=== PATIENT | male | born 1985 | race American Indian/Alaskan Native ===

== ENCOUNTER 2016-03-30 01:48 | Emergency (ER) | payer OTHER ==
[2016-03-30 02:32] VITALS: BP 100/66
[2016-03-30] MEDS ORDERED: NACL 0.9% 1000 ML 1,000 ML IV ONE (03:15)
[2016-03-30 04:07] LABS: Alanine Aminotransferase 37 units/L (7-56); Albumin/Globulin Ratio 1.4 %; Alkaline Phosphatase 37 units/L (35-129); Anion Gap 16 mmol/L; BUN/Creatinine Ratio 17.77; Bilirubin,Total 0.9 mg/dL (0.1-1.2); Blood Urea Nitrogen 16 mg/dL (9-20); Calcium 8.2 mg/dL (8.4-10.2); Carbon Dioxide 29 mmol/L (22-30); Chloride 92.1 mmol/L (98-107); Glucose 98 mg/dL (75-100); Lipase 141 units/L (13-60); Potassium 3.6 mmol/L (3.6-5.0); Sodium 133 mmol/L (137-145); Total Protein 6.9 g/dL (6.3-8.2)
[2016-03-30 04:17] LABS: Basophils % (Auto) 0.3 % (0.0-1.8); Hematocrit 46.4 % (35.5-45.6); Hemoglobin 15.2 gm/dl (11.8-15.2); Mean Corpuscular HGB Conc 33 % (32-34); Mean Corpuscular Hemoglobin 28 pg (28-32); Mean Corpuscular Volume 85 fl (84-94); Red Blood Count 5.46 M/mm3 (3.65-5.03); Red Cell Distribution Width 13.6 % (13.2-15.2); White Blood Count 2.7 K/mm3 (4.5-11.0)
[2016-03-30 04:27] LABS: INR 0.97 (0.87-1.13)
[2016-03-30 04:28] LABS: Partial Thromboplastin Time 34.9 Sec. (24.2-36.6)
[2016-03-30 05:02] LABS: Platelet Count 97 K/mm3 (140-440)
--- NOTE | 2016-03-30 10:17 | Emergency Department Report ---
ED General Adult HPI - General Chief complaint: GI Bleed Stated complaint: BLEEDING ANAL WARTS Time Seen by Provider: 03/30/16 09:53 Source: patient Mode of arrival: Ambulatory Limitations: No Limitations - History of Present Illness Initial comments: Pt reports flu like sx with cough, on and off fevers, and sore throat for the past 4-5 days. Denies SOB. Also reports anal itching with intermittent blood when wiping. Denies abdominal pain, n/v/d. -: Gradual, days(s) (5) Location: buttocks Radiation: non-radiation Severity scale (0 -10): 7 Quality: other (itching) Improves with: none Worsens with: none Associated Symptoms: fever/chills Treatments Prior to Arrival: none - Related Data Previous Rx's Medication Instructions Recorded Last Taken Type Azithromycin [Zithromax] 250 mg PO DAILY #6 tablet 03/30/16 Unknown Rx Hydrocortisone [Anucort-HC SUPPOS] 25 mg RC BID #12 supp.rect 03/30/16 Unknown Rx Lidocaine Viscous 2% 15 ml MM Q4-6H #200 ml 03/30/16 Unknown Rx Allergies Allergy/AdvReac Type Severity Reaction Status Date / Time Penicillins Allergy Unknown Verified 03/30/16 02:30 ED Review of Systems ROS: Stated complaint: BLEEDING ANAL WARTS Other details as noted in HPI Comment: All other systems reviewed and negative Constitutional: see HPI, chills, fever Eyes: denies: eye pain, eye discharge, vision change ENT: throat pain. denies: ear pain Respiratory: cough. denies: shortness of breath, wheezing Cardiovascular: denies: chest pain, palpitations Endocrine: no symptoms reported Gastrointestinal: hematochezia. denies: abdominal pain, nausea, diarrhea Genitourinary: denies: urgency, dysuria Musculoskeletal: denies: back pain, joint swelling, arthralgia Skin: denies: rash, lesions Neurological: denies: headache, weakness, paresthesias Psychiatric: denies: anxiety, depression Hematological/Lymphatic: denies: easy bleeding, easy bruising ED Past Medical Hx - Past Medical History Previous Medical History?: No - Surgical History Past Surgical History?: No - Social History Smoking Status: Never Smoker Substance Use Type: Marijuana - Medications Home Medications: Home Medications Medication Instructions Recorded Confirmed Last Taken Type Azithromycin [Zithromax] 250 mg PO DAILY #6 tablet 03/30/16 Unknown Rx Hydrocortisone [Anucort-HC SUPPOS] 25 mg RC BID #12 supp.rect 03/30/16 Unknown Rx Lidocaine Viscous 2% 15 ml MM Q4-6H #200 ml 03/30/16 Unknown Rx ED Physical Exam - General Limitations: No Limitations General appearance: alert, in no apparent distress - Head Head exam: Present: atraumatic, normocephalic - Eye Eye exam: Present: normal appearance - ENT ENT exam: Present: mucous membranes moist, other (multiple ulcerations noted to oropharynx. no thrush. ) - Neck Neck exam: Present: normal inspection - Respiratory Respiratory exam: Present: normal lung sounds bilaterally. Absent: respiratory distress - Cardiovascular Cardiovascular Exam: Present: regular rate, normal rhythm. Absent: systolic murmur, diastolic murmur, rubs, gallop - GI/Abdominal GI/Abdominal exam: Present: soft, normal bowel sounds. Absent: distended, tenderness, guarding, rebound - Rectal Rectal exam: Present: hemorrhoids (no active bleeding. non-thrombosed.) - Extremities Exam Extremities exam: Present: normal inspection - Back Exam Back exam: Present: normal inspection - Neurological Exam Neurological exam: Present: alert, oriented X3 - Psychiatric Psychiatric exam: Present: normal affect, normal mood - Skin Skin exam: Present: warm, dry, intact, normal color. Absent: rash ED Course Vital Signs 03/30/16 02:30 Temperature 98.9 F Pulse Rate 84 Respiratory 20 Rate Blood Pressure 100/66 [Left] O2 Sat by Pulse 98 Oximetry - Reevaluation(s) Reevaluation #1: 03/30/16 10:19 NAD, stable for d/c. ED Medical Decision Making - Lab Data Result diagrams: 03/30/16 03:22 03/30/16 03:22 - Medical Decision Making Pt well appearing, with flu like symptoms and findings of mild leukopenia and thrombocytopenia on labs. Moderate concern for HIV- I have discussed following up with health department for testing TAWANNA. Specific return precautions were discussed. Rectal exam shows hemorrhoid- will treat. Will also place on abx for URI and give lidocaine for oral ulcers. Case discussed w/ Dr. Minor who is in agreement. - Differential Diagnosis viral syndrome, hemorrhoid, HIV Critical care attestation.: If time is entered above; I have spent that time in minutes in the direct care of this critically ill patient, excluding procedure time. ED Disposition Clinical Impression: Oral aphthous ulcer Upper respiratory infection Qualifiers: URI type: unspecified URI Qualified Code(s): J06.9 - Acute upper respiratory infection, unspecified Hemorrhoid Qualifiers: Hemorrhoid type: unspecified Qualified Code(s): K64.9 - Unspecified hemorrhoids Disposition: DISCHARGED TO HOME OR SELFCARE Is pt being admited?: No Condition: Stable Instructions: Upper Respiratory Infection (ED), Canker Sores (ED), Hemorrhoids (ED) Additional Instructions: Please follow up with the health department/PCP as discussed. Prescriptions: Azithromycin [Zithromax] 250 mg PO DAILY #6 tablet Hydrocortisone [Anucort-HC SUPPOS] 25 mg RC BID #12 supp.rect Lidocaine Viscous 2% 15 ml MM Q4-6H #200 ml Referrals: PRIMARY CAREMD [Primary Care Provider] - 3-5 Days ABIEL JOYNER MD [Staff Physician] - 3-5 Days Forms: Accompanied Note Time of Disposition: 10:24
== END 2016-03-30 10:44 | disposition home or self-care (01) ==
LOC: ED 01:48
DX: J06.9 Acute upper respiratory infection, unspecified (principal); K64.9 Unspecified hemorrhoids; K12.0 Recurrent oral aphthae; F12.90 Cannabis use, unspecified, uncomplicated; Z88.0 Allergy status to penicillin
CPT/HCPCS: 36415; 80053; 83690; 85025; 85610; 85730; 86850; 86900; 86901

== ENCOUNTER 2017-10-17 19:14 | Inpatient (IN) | payer OTHER ==
[2017-10-17 22:06] LABS: Hematocrit 30.6 % (35.5-45.6); Mean Corpuscular HGB Conc 33 % (32-34); Mean Corpuscular Hemoglobin 28 pg (28-32); Mean Corpuscular Volume 84 fl (84-94); Platelet Count 171 K/mm3 (140-440); Red Blood Count 3.64 M/mm3 (3.65-5.03); Red Cell Distribution Width 13.9 % (13.2-15.2)
[2017-10-17 22:22] LABS: Alanine Aminotransferase 18 units/L (7-56); Albumin 3.9 g/dL (3.9-5); BUN/Creatinine Ratio 16; Blood Urea Nitrogen 14 mg/dL (9-20); Calcium 8.9 mg/dL (8.4-10.2); Hemolysis Index 3
[2017-10-17 23:08] LABS: Band Neutrophils # (Manual) 0.1 K/mm3; Basophils % (Manual) 0 % (0.0-1.8); Total Cells Counted 100
[2017-10-17 23:09] LABS: Hypochromasia 2+
[2017-10-17 23:10] LABS: Platelet Estimate Consistent w Auto; Poikilocytosis 1+
[2017-10-18 00:05] LABS: Bilirubin,Urine NEG (Negative); Blood,Urine NEG (Negative); Color,Urine Amber (Yellow); Mucus,Urine 1+ /HPF
[2017-10-18] MEDS ORDERED: NACL 0.9% 1000 ML 1,000 ML IV ONE (00:52)
[2017-10-18] MEDS ORDERED: TYLENOL PO ONE (00:53)
[2017-10-18] MEDS ORDERED: ZOFRAN IV ONE (00:57)
--- NOTE | 2017-10-18 00:57 | Emergency Department Report ---
ED General Adult HPI - General Chief complaint: Abdominal Pain Stated complaint: N/V/D Time Seen by Provider: 10/18/17 00:32 Source: patient Mode of arrival: Ambulatory Limitations: No Limitations - History of Present Illness Initial comments: Patient is 32 years old male with history of HIV diagnosed 1 year ago. Patient stated that he did not have any follow-up since the diagnosis. Patient was never been on any anti-HIV medication. Patient presented to the ER complaining of a fever over the last 3 days associated with nausea vomiting and diarrhea. Patient denied any abdominal pain or chest pain. Patient stated that his being coughing and having shortness of breath. - Related Data Home Medications Medication Instructions Recorded Confirmed Last Taken No Known Home Medications [No 10/18/17 10/18/17 Unknown Reported Home Medications] Allergies Allergy/AdvReac Type Severity Reaction Status Date / Time Penicillins Allergy Unknown Verified 03/30/16 02:30 ED Review of Systems ROS: Stated complaint: N/V/D Other details as noted in HPI Comment: All other systems reviewed and negative Constitutional: chills, fever Respiratory: cough, shortness of breath. denies: orthopnea, SOB with exertion, SOB at rest, stridor, wheezing Cardiovascular: denies: chest pain, palpitations Gastrointestinal: nausea, vomiting, diarrhea. denies: abdominal pain, constipation, hematemesis, melena, hematochezia Genitourinary: denies: urgency, dysuria Musculoskeletal: denies: back pain ED Past Medical Hx - Past Medical History Previous Medical History?: Yes Additional medical history: lupus, HIV - Surgical History Past Surgical History?: No - Social History Smoking Status: Current Every Day Smoker Substance Use Type: None - Medications Home Medications: Home Medications Medication Instructions Recorded Confirmed Last Taken Type No Known Home Medications [No 10/18/17 10/18/17 Unknown History Reported Home Medications] ED Physical Exam - General Limitations: No Limitations ED Course Vital Signs 10/17/17 10/17/17 10/18/17 19:43 21:34 00:28 Temperature 101.6 F H 101.6 F H 99.1 F Pulse Rate 95 H 104 H Respiratory 18 17 Rate Blood Pressure 101/52 101/59 Blood Pressure [Right] O2 Sat by Pulse 99 99 Oximetry 10/18/17 10/18/17 10/18/17 03:00 04:00 04:40 Temperature 98.8 F Pulse Rate 80 Respiratory 17 Rate Blood Pressure 93/51 90/48 90/48 Blood Pressure 93/51 [Right] O2 Sat by Pulse 100 100 100 Oximetry 10/18/17 10/18/17 10/18/17 04:50 05:00 05:10 Temperature Pulse Rate Respiratory Rate Blood Pressure 90/48 90/54 90/54 Blood Pressure [Right] O2 Sat by Pulse 100 100 100 Oximetry 10/18/17 10/18/17 05:20 05:30 Temperature Pulse Rate Respiratory Rate Blood Pressure 90/54 90/54 Blood Pressure [Right] O2 Sat by Pulse 99 100 Oximetry ED Medical Decision Making - Lab Data Result diagrams: 10/18/17 04:01 10/18/17 04:01 - Radiology Data Radiology results: report reviewed Referring Physician: DANIELLE GERMAIN Patient Name: FORTUNATO GARRETT Date of : 1985 Sex: Male Report Date: 2017-10-18 Report Status: [place] [id number] XRay Report Signed Patient: FORTUNATO GARRETT MR#: [id number] : 1985 Acct:[id number] Age/Sex: 32 / M ADM Date: 10/17/17 Loc: ED Attending Dr: Ordering Physician: DANIELLE GERMAIN Date of Service: 10/18/17 Procedure(s): XR chest 1V ap Accession Number(s): [id number] cc: DANIELLE GERMAIN Fluoro Time In Minutes: FINAL REPORT EXAM: XR CHEST 1V AP HISTORY: cough COMPARISON: None available. FINDINGS: Frontal view(s) of the chest obtained. Cardiac silhouette within normal limits. No gross consolidation or effusion. No pneumothorax. IMPRESSION: No grossly acute findings. Transcribed By: LMA Dictated By: MICHELL BARBER MD Electronically Authenticated By: MICHELL BARBER MD Signed Date/Time: 10/18/17125 DD/ 5 TD/TT: 10/18/17125 Critical care attestation.: If time is entered above; I have spent that time in minutes in the direct care of this critically ill patient, excluding procedure time. ED Disposition Clinical Impression: Fever, HIV (human immunodeficiency virus infection), Diarrhea Disposition: DC-09 OP ADMIT IP TO THIS HOSP Is pt being admited?: Yes Condition: Stable
--- NOTE | 2017-10-18 01:28 | XRay Report ---
FINAL REPORT EXAM: XR CHEST 1V AP HISTORY: cough COMPARISON: None available. FINDINGS: Frontal view(s) of the chest obtained. Cardiac silhouette within normal limits. No gross consolidation or effusion. No pneumothorax. IMPRESSION: No grossly acute findings.
[2017-10-18] MEDS ORDERED: LEVAQUIN 500MG/100ML 500 MG/100 ML BAG IV ONE (02:28)
[2017-10-18] MEDS: BACTRIM DS PO SCH ×3 (03:07→22:05)
[2017-10-18] MEDS ORDERED: SODIUM CHLORIDE FLUSH SYRINGE 10 ML IV PRN (03:25)
[2017-10-18] MEDS ORDERED: TYLENOL PO PRN (03:25)
[2017-10-18] MEDS ORDERED: NACL 0.9% 1000 ML 1,000 ML IV SCH ×2 (04:00→05:00)
[2017-10-18] MEDS ORDERED: DIFLUCAN 200 MG/100 ML BAG IV ONE (04:00)
[2017-10-18 04:29] LABS: Basophils % (Auto) 0.2 % (0.0-1.8); Eosinophils # (Auto) 0.1 K/mm3 (0.0-0.4); Eosinophils % (Auto) 1.8 % (0.0-4.3); Hematocrit 26.2 % (35.5-45.6); Hemoglobin 8.6 gm/dl (11.8-15.2); Lymphocytes # (Auto) 0.2 K/mm3 (1.2-5.4); Lymphocytes % (Auto) 7.5 % (13.4-35.0); Mean Corpuscular HGB Conc 33 % (32-34); Mean Corpuscular Hemoglobin 28 pg (28-32); Mean Corpuscular Volume 84 fl (84-94); Monocytes # (Auto) 0.5 K/mm3 (0.0-0.8); Monocytes % (Auto) 14.2 % (0.0-7.3); Platelet Count 139 K/mm3 (140-440); Red Blood Count 3.11 M/mm3 (3.65-5.03)
[2017-10-18 04:36] LABS: Blood Urea Nitrogen 15 mg/dL (9-20)
[2017-10-18 05:07] LABS: BUN/Creatinine Ratio 19; Calcium 8.1 mg/dL (8.4-10.2); Hemolysis Index 0
--- NOTE | 2017-10-18 05:07 | History and Physical Report ---
History of Present Illness Date of examination: 10/18/17 History of present illness: 32 year ol d man with history of HIV, unknown CD4 count, diagnosed one year ago comes to the emergency room because he wants to be on anti-retrovirals. He has never been started on any medication. He stated that he had nausea and vomiting but that is resolved. Is reported that the patient had diarrhea but he denies diarrhea currently Review of systems Constitutional: no weight loss, chills, fever Ears, eyes, nose, mouth and throat: no nasal congestion, no nasal discharge, no sinus pressure, no vision change, no red eye. Neck: No neck pain or rigidity. Cardiovascular: no chest pain, palpitations Respiratory: no cough, shortness of breath Gastrointestinal: no abdominal pain hematochezia Genitourinary : no frequency , no hematuria Musculoskeletal: no joint swelling or muscle ache Integumentary: no rash, no pruritis Neurological: no parathesias, no numbness, no focal weakness Endocrine: no cold or heat intolerance, no polyuria or polydipsia Hematologic/Lymphatic: no easy bruising, no easy bleeding, no gland swelling Allergic/Immunologic: no urticaria, no angioedema. PAST MEDICAL HISTORY:HIV PAST SURGICAL HISTORY: None SOCIAL HISTORY: No alcohol, no drugs, tobacco FAMILY HISTORY: Hypertension Medications and Allergies Allergies Allergy/AdvReac Type Severity Reaction Status Date / Time Penicillins Allergy Unknown Verified 03/30/16 02:30 Home Medications Medication Instructions Recorded Confirmed Last Taken Type Fluconazole [Diflucan TAB] 200 mg PO QDAY #7 tablet 10/20/17 Unknown Rx Sulfamethoxazole/Trimethoprim 1 each PO Q12HR #14 tablet 10/20/17 Unknown Rx [Bactrim DS TAB] Active Meds: Active Medications Acetaminophen (Tylenol) 650 mg PO Q4H PRN PRN Reason: Pain MILD(1-3)/Fever >100.5/RODRIGUEZ Enoxaparin Sodium (Lovenox) 40 mg SUB-Q QDAY BRYAN Fluconazole (Diflucan) 200 mg PO QDAY BRYAN Levofloxacin/Dextrose (Levaquin 500mg/100ml) 500 mg in 100 mls @ 100 mls/hr IV Q24HR BRYAN; Protocol Sodium Chloride (Nacl 0.9% 1000 Ml) 1,000 mls @ 100 mls/hr IV DIRECT BRYAN Ondansetron HCl (Zofran) 4 mg IV Q8H PRN PRN Reason: Nausea And Vomiting Sodium Chloride (Sodium Chloride Flush Syringe 10 Ml) 10 ml IV BID BRYAN Sodium Chloride (Sodium Chloride Flush Syringe 10 Ml) 10 ml IV PRN PRN PRN Reason: LINE FLUSH Trimethoprim/Sulfamethoxazole (Bactrim Ds) 1 each PO Q12HR BRYAN Last Admin: 10/18/17 03:07 Dose: 1 each Exam - Physical Exam Narrative exam: Gen. appearance: Patient lying in bed, no apparent distress HEENT: Normocephalic, atraumatic, pupils equally round and reactive to light, extraocular movement intact, and no sclericterus,. No JVD or thyromegaly or nodule,neck supple, no carotid bruit ,mucous membranes moist, + white exudate Heart: S1, S2, regular rate and rhythm Lungs: Clear bilaterally, breathing comfortable Abdomen: Positive bowel sounds, non-tender, nondistended, no organomegaly Extremity:no edema cyanosis, clubbing Skin: no rash, dry, warm Neuro: Oriented 3, cranial nerves II-12 intact, speech is fluent, motor and sensory intact - Constitutional Vitals: Temp Pulse Resp BP Pulse Ox 98.8 F 80 17 90/48 100 10/18/17 03:00 10/18/17 03:00 10/18/17 03:00 10/18/17 04:00 10/18/17 04:00 Results - Labs CBC & Chem 7: 10/18/17 04:01 10/19/17 06:23 Labs: Abnormal lab results 10/17/17 10/17/17 10/17/17 Range/Units 21:54 21:54 21:54 WBC 3.5 L (4.5-11.0) K/mm3 RBC 3.64 L (3.65-5.03) M/mm3 Hgb 10.0 L (11.8-15.2) gm/dl Hct 30.6 L (35.5-45.6) % Plt Count (140-440) K/mm3 Lymph % (Auto) (13.4-35.0) % [place] % (Auto) (0.0-7.3) % Lymph # (1.2-5.4) K/mm3 Seg Neutrophils % (40.0-70.0) % Seg Neuts % (Manual) 73.0 H (40.0-70.0) % Lymphocytes % (Manual) 5.0 L (13.4-35.0) % Monocytes % (Manual) 18.0 H (0.0-7.3) % Lymphocytes # (Manual) 0.2 L (1.2-5.4) K/mm3 Sodium 133 L (137-145) mmol/L Potassium 3.5 L (3.6-5.0) mmol/L Chloride 96.2 L (98-107) mmol/L Alkaline Phosphatase 28 L (35-129) units/L Lactate Dehydrogenase 343 H (91-180) units/L 10/18/17 10/18/17 Range/Units 04:01 04:01 WBC 3.3 L (4.5-11.0) K/mm3 RBC 3.11 L (3.65-5.03) M/mm3 Hgb 8.6 L (11.8-15.2) gm/dl Hct 26.2 L (35.5-45.6) % Plt Count 139 L (140-440) K/mm3 Lymph % (Auto) 7.5 L (13.4-35.0) % [place] % (Auto) 14.2 H (0.0-7.3) % Lymph # 0.2 L (1.2-5.4) K/mm3 Seg Neutrophils % 76.3 H (40.0-70.0) % Seg Neuts % (Manual) (40.0-70.0) % Lymphocytes % (Manual) (13.4-35.0) % Monocytes % (Manual) (0.0-7.3) % Lymphocytes # (Manual) (1.2-5.4) K/mm3 Sodium 136 L (137-145) mmol/L Potassium 3.4 L (3.6-5.0) mmol/L Chloride (98-107) mmol/L Alkaline Phosphatase (35-129) units/L Lactate Dehydrogenase (91-180) units/L - Imaging and Cardiology Chest x-ray: report reviewed Assessment and Plan Assessment SIRS Oral candidiasis HIV, no CD4 count Plan Admit to medicine start IV fluid obtain blood cultures, start empiric antibiotic Start fluconazole, DVT prophylaxis Antiretrovirals to be started outpatient
[2017-10-18] MEDS: LEVAQUIN 500MG/100ML 500 MG/100 ML BAG IV SCH (09:03)
[2017-10-18] MEDS: ZOFRAN IV PRN ×2 (09:14→22:11)
[2017-10-18] MEDS: SODIUM CHLORIDE FLUSH SYRINGE 10 ML IV SCH ×2 (09:20→22:05)
[2017-10-18] MEDS: K-DUR PO SCH (09:33)
[2017-10-18] MEDS: NS/KCL 20MEQ 20 MEQ/1,000 ML BAG IV SCH ×2 (09:34→20:55)
[2017-10-18] MEDS ORDERED: LOVENOX SUB-Q SCH (10:00)
--- NOTE | 2017-10-18 17:49 | Event Note ---
Date: 10/18/17 Patient seen and examined today. Continue management for SIRS/possible sepsis. We'll follow up on blood culture results.
[2017-10-19 07:51] LABS: BUN/Creatinine Ratio 13; Blood Urea Nitrogen 9 mg/dL (9-20); Calcium 8.4 mg/dL (8.4-10.2); Hemolysis Index 1
[2017-10-19] MEDS: K-DUR PO SCH (11:10)
[2017-10-19] MEDS: DIFLUCAN PO SCH (11:10)
[2017-10-19] MEDS: SODIUM CHLORIDE FLUSH SYRINGE 10 ML IV SCH ×2 (11:11→23:17)
[2017-10-19] MEDS: BACTRIM DS PO SCH ×2 (11:11→23:17)
[2017-10-19] MEDS: LEVAQUIN 500MG/100ML 500 MG/100 ML BAG IV SCH (11:11)
[2017-10-19] MEDS: NS/KCL 20MEQ 20 MEQ/1,000 ML BAG IV SCH (11:13)
--- NOTE | 2017-10-19 12:08 | Progress Note ---
Assessment and Plan Assessment and plan: SIRS, probably secondary to Orophangeal candidiasis -On IV Diflucan and antibiotic -Fever trended down -UA and CXR negative -Blood cultures pending Hypotension -Probably secondary to the acute infection -BP stable Mild hypokalemia -Resolved status post repletion History of HIV disease -Currently not on meds -For outpatient follow-up Disposition: Patient can be discharged in a.m. if blood culture is negative and he continues to be afebrile History Interval history: The patient has no new complaints. He denies shortness of breath or cough. Hospitalist Physical - Constitutional Vitals: Temp Pulse Resp BP Pulse Ox 97.7 F 80 14 87/55 98 10/19/17 06:29 10/19/17 06:29 10/19/17 06:29 10/19/17 06:29 10/19/17 06:29 General appearance: Present: no acute distress - EENT Eyes: Present: PERRL, EOM intact ENT: hearing intact, clear oral mucosa - Neck Neck: Present: supple - Respiratory Respiratory effort: normal Respiratory: bilateral: CTA - Cardiovascular Rhythm: regular Heart Sounds: Present: S1 & S2 - Extremities Extremities: No edema - Abdominal General gastrointestinal: soft, non-tender, normal bowel sounds - Neurologic Neurologic: CNII-XII intact Results - Labs CBC & Chem 7: 10/18/17 04:01 10/19/17 06:23 Labs: Laboratory Last Values WBC 3.3 K/mm3 (4.5-11.0) L 10/18/17 04:01 RBC 3.11 M/mm3 (3.65-5.03) L 10/18/17 04:01 Hgb 8.6 gm/dl (11.8-15.2) L 10/18/17 04:01 Hct 26.2 % (35.5-45.6) L 10/18/17 04:01 MCV 84 fl (84-94) 10/18/17 04:01 MCH 28 pg (28-32) 10/18/17 04:01 MCHC 33 % (32-34) 10/18/17 04:01 RDW 14.0 % (13.2-15.2) 10/18/17 04:01 Plt Count 139 K/mm3 (140-440) L 10/18/17 04:01 Lymph % (Auto) 7.5 % (13.4-35.0) L 10/18/17 04:01 [place] % (Auto) 14.2 % (0.0-7.3) H 10/18/17 04:01 Eos % (Auto) 1.8 % (0.0-4.3) 10/18/17 04:01 Baso % (Auto) 0.2 % (0.0-1.8) 10/18/17 04:01 Lymph # 0.2 K/mm3 (1.2-5.4) L 10/18/17 04:01 Delta # 0.5 K/mm3 (0.0-0.8) 10/18/17 04:01 Eos # 0.1 K/mm3 (0.0-0.4) 10/18/17 04:01 Baso # 0.0 K/mm3 (0.0-0.1) 10/18/17 04:01 Add Manual Diff Complete 10/17/17 21:54 Total Counted 100 10/17/17 21:54 Seg Neutrophils % 76.3 % (40.0-70.0) H 10/18/17 04:01 Seg Neuts % (Manual) 73.0 % (40.0-70.0) H 10/17/17 21:54 Band Neutrophils % 3.0 % 10/17/17 21:54 Lymphocytes % (Manual) 5.0 % (13.4-35.0) L 10/17/17 21:54 Reactive Lymphs % (Man) 0 % 10/17/17 21:54 Monocytes % (Manual) 18.0 % (0.0-7.3) H 10/17/17 21:54 Eosinophils % (Manual) 1.0 % (0.0-4.3) 10/17/17 21:54 Basophils % (Manual) 0 % (0.0-1.8) 10/17/17 21:54 Metamyelocytes % 0 % 10/17/17 21:54 Myelocytes % 0 % 10/17/17 21:54 Promyelocytes % 0 % 10/17/17 21:54 Blast Cells % 0 % 10/17/17 21:54 Nucleated RBC % Not Reportable 10/17/17 21:54 Seg Neutrophils # 2.5 K/mm3 (1.8-7.7) 10/18/17 04:01 Seg Neutrophils # Man 2.6 K/mm3 (1.8-7.7) 10/17/17 21:54 Band Neutrophils # 0.1 K/mm3 10/17/17 21:54 Lymphocytes # (Manual) 0.2 K/mm3 (1.2-5.4) L 10/17/17 21:54 Abs React Lymphs (Man) 0.0 K/mm3 10/17/17 21:54 Monocytes # (Manual) 0.6 K/mm3 (0.0-0.8) 10/17/17 21:54 Eosinophils # (Manual) 0.0 K/mm3 (0.0-0.4) 10/17/17 21:54 Basophils # (Manual) 0.0 K/mm3 (0.0-0.1) 10/17/17 21:54 Metamyelocytes # 0.0 K/mm3 10/17/17 21:54 Myelocytes # 0.0 K/mm3 10/17/17 21:54 Promyelocytes # 0.0 K/mm3 10/17/17 21:54 Blast Cells # 0.0 K/mm3 10/17/17 21:54 WBC Morphology Not Reportable 10/17/17 21:54 Hypersegmented Neuts Not Reportable 10/17/17 21:54 Hyposegmented Neuts Not Reportable 10/17/17 21:54 Hypogranular Neuts Not Reportable 10/17/17 21:54 Smudge Cells Not Reportable 10/17/17 21:54 Toxic Granulation Not Reportable 10/17/17 21:54 Toxic Vacuolation Not Reportable 10/17/17 21:54 Dohle Bodies Not Reportable 10/17/17 21:54 Pelger-Huet Anomaly Not Reportable 10/17/17 21:54 Timur Rods Not Reportable 10/17/17 21:54 Platelet Estimate Consistent w auto 10/17/17 21:54 Clumped Platelets Not Reportable 10/17/17 21:54 Plt Clumps, EDTA Not Reportable 10/17/17 21:54 Large Platelets Not Reportable 10/17/17 21:54 Giant Platelets Not Reportable 10/17/17 21:54 Platelet Satelliting Not Reportable 10/17/17 21:54 Plt Morphology Comment Not Reportable 10/17/17 21:54 RBC Morphology Not Reportable 10/17/17 21:54 Dimorphic RBCs Not Reportable 10/17/17 21:54 Polychromasia Not Reportable 10/17/17 21:54 Hypochromasia 2+ 10/17/17 21:54 Poikilocytosis 1+ 10/17/17 21:54 Anisocytosis Not Reportable 10/17/17 21:54 Microcytosis Not Reportable 10/17/17 21:54 Macrocytosis Not Reportable 10/17/17 21:54 Spherocytes Not Reportable 10/17/17 21:54 Pappenheimer Bodies Not Reportable 10/17/17 21:54 Sickle Cells Not Reportable 10/17/17 21:54 Target Cells Not Reportable 10/17/17 21:54 Tear Drop Cells Not Reportable 10/17/17 21:54 Ovalocytes Not Reportable 10/17/17 21:54 Helmet Cells Not Reportable 10/17/17 21:54 [place] Bodies Not Reportable 10/17/17 21:54 [place] Rings Not Reportable 10/17/17 21:54 Michele Cells Not Reportable 10/17/17 21:54 Bite Cells Not Reportable 10/17/17 21:54 Crenated Cell Not Reportable 10/17/17 21:54 Elliptocytes 2+ 10/17/17 21:54 Acanthocytes (Spur) Not Reportable 10/17/17 21:54 Rouleaux Not Reportable 10/17/17 21:54 Hemoglobin C Crystals Not Reportable 10/17/17 21:54 Schistocytes Not Reportable 10/17/17 21:54 Malaria parasites Not Reportable 10/17/17 21:54 Sergio Bodies Not Reportable 10/17/17 21:54 Hem Pathologist Commnt No 10/17/17 21:54 Sodium 140 mmol/L (137-145) 10/19/17 06:23 Potassium 4.4 mmol/L (3.6-5.0) D 10/19/17 06:23 Chloride 105.7 mmol/L (98-107) 10/19/17 06:23 Carbon Dioxide 23 mmol/L (22-30) 10/19/17 06:23 Anion Gap 16 mmol/L 10/19/17 06:23 BUN 9 mg/dL (9-20) 10/19/17 06:23 Creatinine 0.7 mg/dL (0.8-1.5) L 10/19/17 06:23 Estimated GFR > 60 ml/min 10/19/17 06:23 BUN/Creatinine Ratio 13 % 10/19/17 06:23 Glucose 75 mg/dL (75-100) 10/19/17 06:23 Calcium 8.4 mg/dL (8.4-10.2) 10/19/17 06:23 Magnesium 2.20 mg/dL (1.7-2.3) 10/19/17 06:23 Total Bilirubin 0.50 mg/dL (0.1-1.2) 10/17/17 21:54 AST 23 units/L (5-40) 10/17/17 21:54 ALT 18 units/L (7-56) 10/17/17 21:54 Alkaline Phosphatase 28 units/L (35-129) L 10/17/17 21:54 Lactate Dehydrogenase 343 units/L (91-180) H 10/17/17 21:54 Total Protein 7.5 g/dL (6.3-8.2) 10/17/17 21:54 Albumin 3.9 g/dL (3.9-5) 10/17/17 21:54 Albumin/Globulin Ratio 1.1 % 10/17/17 21:54 Lipase 41 units/L (13-60) 10/17/17 21:54 Urine Color [place] (Yellow) 10/17/17 23:42 Urine Turbidity Slightly-cloudy (Clear) 10/17/17 23:42 Urine pH 6.0 (5.0-7.0) 10/17/17 23:42 Ur Specific [place] 1.027 (1.003-1.030) 10/17/17 23:42 Urine Protein 100 mg/dl mg/dL (Negative) 10/17/17 23:42 Urine Glucose (UA) Neg mg/dL (Negative) 10/17/17 23:42 Urine Ketones Tr mg/dL (Negative) 10/17/17 23:42 Urine Blood Neg (Negative) 10/17/17 23:42 Urine Nitrite Neg (Negative) 10/17/17 23:42 Urine Bilirubin Neg (Negative) 10/17/17 23:42 Urine Urobilinogen 4.0 mg/dL (<2.0) 10/17/17 23:42 Ur Leukocyte Esterase Neg (Negative) 10/17/17 23:42 Urine WBC (Auto) 2.0 /HPF (0.0-6.0) 10/17/17 23:42 Urine RBC (Auto) 2.0 /HPF (0.0-6.0) 10/17/17 23:42 Urine Mucus 1+ /HPF 10/17/17 23:42
[2017-10-19] MEDS ORDERED: NACL 0.9% 1000 ML 1,000 ML IV SCH (13:00)
[2017-10-20 06:39] VITALS: BP 108/61
[2017-10-20] MEDS: LEVAQUIN 500MG/100ML 500 MG/100 ML BAG IV SCH (11:00)
[2017-10-20] MEDS: BACTRIM DS PO SCH (11:00)
[2017-10-20] MEDS: DIFLUCAN PO SCH (11:00)
[2017-10-20] MEDS: SODIUM CHLORIDE FLUSH SYRINGE 10 ML IV SCH (11:01)
--- NOTE | 2017-10-20 13:36 | Discharge Summary ---
Providers - Providers Date of Admission: 10/18/17 03:25 Date of discharge: 10/20/17 Attending physician: KARAN GALVEZ Primary care physician: JEANE HILL MD Hospitalization Condition: Stable Hospital course: SIRS, probably secondary to Orophangeal candidiasis -On IV Diflucan and antibiotic -Fever trended down -UA and CXR negative -Blood cultures pending Hypotension -Probably secondary to the acute infection -BP stable Mild hypokalemia -Resolved status post repletion History of HIV disease -Currently not on meds -For outpatient follow-up Hospitalist Physical General appearance: Present: no acute distress - EENT Eyes: Present: PERRL, EOM intact ENT: hearing intact, clear oral mucosa - Neck Neck: Present: supple - Respiratory Respiratory effort: normal Respiratory: bilateral: CTA - Cardiovascular Rhythm: regular Heart Sounds: Present: S1 & S2 - Extremities Extremities: No edema - Abdominal General gastrointestinal: soft, non-tender, normal bowel sounds - Neurologic Neurologic: CNII-XII intact Disposition: DC-01 TO HOME OR SELFCARE Time spent for discharge: 32 minutes Core Measure Documentation - Palliative Care Palliative Care/ Comfort Measures: Not Applicable - Core Measures Any of the following diagnoses?: none Exam - Constitutional Vitals: Temp Pulse Resp BP Pulse Ox 98.2 F 94 H 16 108/61 100 10/20/17 06:12 10/20/17 06:12 10/20/17 06:12 10/20/17 06:12 10/20/17 06:12 Plan Activity: advance as tolerated Weight Bearing Status: Weight Bear as Tolerated Diet: regular Additional Instructions: f/u at [facility] Follow up with: JEANE HILL MD [Primary Care Provider] - 3-5 Days Prescriptions: Fluconazole [Diflucan TAB] 200 mg PO QDAY #7 tablet Sulfamethoxazole/Trimethoprim [Bactrim DS TAB] 1 each PO Q12HR #14 tablet
== END 2017-10-20 16:00 | disposition home or self-care (01) | DRG 159 ==
LOC: ED 19:14 → 3A 10-18 03:25
PROVIDERS: ADMIT Internal Medicine; ATTEND Internal Medicine
DX: B37.0 Candidal stomatitis (principal); I95.9 Hypotension, unspecified; Z88.0 Allergy status to penicillin; M32.9 Systemic lupus erythematosus, unspecified; F17.200 Nicotine dependence, unspecified, uncomplicated; R19.7 Diarrhea, unspecified; E87.6 Hypokalemia
CPT/HCPCS: 36415; 71045; 80048; 80053; 81001; 82024; 83615; 83690; 83735; 85007; 85025; 87040; 87535; 87806; J1450; J1956; J2405; J7030